=== PATIENT | male | born 1975 ===

== ENCOUNTER 2025-02-07 13:40 | Emergency (ER) | payer OTHER ==
[~2025-02-07] VITALS: Ht 180.3 cm; Wt 106.6 kg
[2025-02-07 13:44] VITALS: BP 158/109
[2025-02-07] MEDS ORDERED: IBUP800 PO (15:12)
[2025-02-07] MEDS ORDERED: AMOCLA875 PO (15:12)
== END 2025-02-07 15:30 | disposition home or self-care (01) ==
LOC: ER 13:40
DX: K04.7 Periapical abscess without sinus (principal); K02.9 Dental caries, unspecified; I10 Essential (primary) hypertension; R00.1 Bradycardia, unspecified; Z88.5 Allergy status to narcotic agent
CPT/HCPCS: 99282; A9270

== ENCOUNTER 2025-03-21 06:58 | Emergency (ER) | payer OTHER ==
[~2025-03-21] VITALS: Ht 180.3 cm; Wt 105.7 kg
[~2025-03-21 06:58] MED LIST: AMOCLA875 PO; IBUP800 PO
[2025-03-21 07:24] VITALS: BP 160/99
[2025-03-21] MEDS ORDERED: Trimethoprim/Sulfamethoxazole DS Tab PO ONE (07:45)
[2025-03-21] MEDS ORDERED: CEPH500 PO (07:46)
[2025-03-21] MEDS ORDERED: Bactrim Ds Tab1 EACH PO (07:46)
== END 2025-03-21 07:54 | disposition home or self-care (01) ==
LOC: ER 06:58
DX: J34.0 Abscess, furuncle and carbuncle of nose (principal); Z88.5 Allergy status to narcotic agent
CPT/HCPCS: 99283; A9270